=== PATIENT | female | born 1945 | race Two or more races ===

== ENCOUNTER 2018-05-08 08:03 | Outpatient (CLI) | payer OTHER | END 2018-05-08 08:16 | disposition home or self-care (01) | LOC: SONOGRAMA 08:03 | DX: E04.1 Nontoxic single thyroid nodule (principal) ==

== ENCOUNTER 2018-10-09 08:13 | Outpatient (CLI) | payer OTHER | END 2018-10-09 08:21 | disposition home or self-care (01) | LOC: SONOGRAMA 08:13 | DX: E04.1 Nontoxic single thyroid nodule (principal) ==